=== PATIENT | female | born 1945 | race Caucasian/White ===

== ENCOUNTER 2017-05-15 02:42 | Outpatient (CLI) | payer SELFPAY | END 2017-05-15 23:59 | disposition home or self-care (01) | LOC: HW VAS 02:42 | DX: Z00.00 Encounter for general adult medical examination without abnormal findings (principal) ==

== ENCOUNTER 2017-12-06 09:58 | Outpatient (CLI) | payer MEDICARE, BC | END 2017-12-06 23:59 | disposition home or self-care (01) | LOC: RT 09:58 | PROVIDERS: ATTEND Internal Medicine Cardiovascular Disease | DX: Z51.81 Encounter for therapeutic drug level monitoring (principal); I10 Essential (primary) hypertension; Z79.899 Other long term (current) drug therapy | CPT/HCPCS: 71046; 85018; 94010; 94727; 94729 ==

== ENCOUNTER 2020-06-04 06:11 | Day surgery (SDC) | payer MEDICARE, BC ==
[2020-06-03 15:20] LABS: BASOPHILS # (AUTO) 0.1 X10'3 (0-0.2); BASOPHILS % (AUTO) 0.9 % (0-1); EOSINOPHILS # (AUTO) 0.1 X10'3 (0-0.9); EOSINOPHILS % (AUTO) 1.7 % (0-6); HEMATOCRIT 39.8 % (35.0-45.0); LYMPHOCYTES % (AUTO) 17.5 % (21-51); MEAN CORPUSCULAR HEMOGLOBIN 32.3 PG (27.0-31.0); MEAN CORPUSCULAR HGB CONC 32.6 g/dL (33.0-36.5); MEAN CORPUSCULAR VOLUME 99.1 FL (78-98); MEAN PLATELET VOLUME 8.4 FL (7.4-10.4); MONOCYTES # (AUTO) 0.5 X10'3 (0-0.9); MONOCYTES % (AUTO) 8.5 % (2-12); NEUTROPHILS % (AUTO) 71.4 % (42-75); PLATELET COUNT 245 X10'3 (140-440); RED BLOOD COUNT 4.02 X10'6 (4.20-5.60); RED CELL DISTRIBUTION WIDTH 14.7 % (11.5-14.5); WHITE BLOOD COUNT 5.6 X10'3 (4.5-11.0)
[2020-06-03 15:24] LABS: ALBUMIN 3.7 G/DL (3.4-5.0); ANION GAP 5 (8-16); BLOOD UREA NITROGEN 11 MG/DL (7-18); BUN/CREATININE RATIO 12.6 (6.6-38.0); CALCIUM 8.9 MG/DL (8.5-10.1); CHLORIDE 104 MMOL/L (99-107); CREATININE 0.87 MG/DL (0.40-0.90); GLUCOSE 97 MG/DL (70-104); POTASSIUM 4.2 MMOL/L (3.5-5.1); SODIUM 138 MMOL/L (135-145); TOTAL CARBON DIOXIDE 28.8 MMOL/L (24-32); eGFR 64 ML/MIN
[2020-06-03 15:26] LABS: PARTIAL THROMBOPLASTIN TIME 34 SECONDS (22-32)
[2020-06-04] VITALS (11 sets, daily range): BP systolic 116–147; BP diastolic 53–88
[~2020-06-04] VITALS: Ht 162.6 cm; Wt 56.3 kg
[2020-06-04] MEDS ORDERED: normal saline 1000ml 1,000 ML IV SCH (06:25)
[2020-06-04] MEDS ORDERED: ceFAZolin 2gm in dextrose, iso 50 ML IV ONE (06:25)
[2020-06-04] MEDS ORDERED: ESCI10TA66 PO (06:56)
[2020-06-04] MEDS ORDERED: DONE10TA44 PO (06:56)
[2020-06-04] MEDS ORDERED: MEMA1CAP3 PO (06:56)
[2020-06-04] MEDS ORDERED: DABI150C PO (06:56)
[2020-06-04] MEDS ORDERED: TRAZ-256 PO (06:56)
[2020-06-04] MEDS ORDERED: RISE35TA13 PO (06:56)
[2020-06-04] MEDS ORDERED: ASPI-1053 PO (06:56)
[2020-06-04] MEDS ORDERED: AMIO200T61 PO (06:56)
[2020-06-04] MEDS ORDERED: LISI10TA4 PO (06:56)
[2020-06-04] MEDS ORDERED: LEVO75TA7 PO (06:56)
[2020-06-04] MEDS ORDERED: ROSU5TAB12 PO (06:56)
[2020-06-04] MEDS ORDERED: LOPE-190 (07:01)
[2020-06-04] MEDS ORDERED: METO100T14 PO (07:01)
[2020-06-04] MEDS ORDERED: LIDOcaine 1% W/epiNEPHrine 1:100,000 20ml vial ONE (08:30)
[2020-06-04] MEDS ORDERED: fentaNYL/PF 50MCG/1 ML 2ML syringe ONE (08:30)
[2020-06-04] MEDS ORDERED: midazolam 2 mg/2 ml injection ONE (08:30)
[2020-06-04] MEDS ORDERED: ceFAZolin 1000mg inj ONE (08:30)
--- NOTE | 2020-06-04 10:48 | NUR ---
Discharge instructions, including new script for Keflex and resuming of Pradaxa on 06/06/20, reviewed with pt's daughter Shirley via telephone. Daughter had opportunity to ask questions & expressed understanding of DC instructions.
[2020-06-04] MEDS ORDERED: HYDROcodone/acetaminophen 10/325mg tab PO PRN (10:50)
[2020-06-04] MEDS ORDERED: HYDROcodone/acetaminophen 5mg/325mg tablet PO PRN (10:50)
[2020-06-04] MEDS ORDERED: vancomycin/NS 1 GM ADD-VANTAGE 250 ML X 1 DOSE IV ONE (12:00)
--- NOTE | 2020-06-04 12:12 | NUR ---
Upon entering pt's room, discovered pt standing at bedside, gown and L arm sling off, monitor disconnected. Pt stated "I don't know what all these things are for, I need to get out of here". Pt requires reorientation Q15 minutes, A&O x1. Pt lives alone, pt's daughter stated that she would stay with pt tonight but that pt would return to previous living arrangement post discharge. This RN will contact social human services assistants for evaluation. Addendum: 06/04/20 at 1237 by Daniela Gresham RN Associate Music Professor paged for consult.
--- NOTE | 2020-06-04 12:31 | NUR ---
Tabs alarm placed on pt.
--- NOTE | 2020-06-04 13:51 | NUR ---
Called CM re pt removing sling & moving arm.
== END 2020-06-04 16:00 | disposition home or self-care (01) ==
LOC: SSTAY O 06:11
PROVIDERS: ATTEND Internal Medicine Cardiovascular Disease
DX: I49.5 Sick sinus syndrome (principal); I25.10 Atherosclerotic heart disease of native coronary artery without angina pectoris; E11.9 Type 2 diabetes mellitus without complications; I10 Essential (primary) hypertension; E78.49 Other hyperlipidemia; I48.0 Paroxysmal atrial fibrillation; G47.30 Sleep apnea, unspecified; E66.3 Overweight; Z68.23 Body mass index [BMI] 23.0-23.9, adult; Z85.3 Personal history of malignant neoplasm of breast; Z86.73 Personal history of transient ischemic attack (TIA), and cerebral infarction without residual deficits; Z90.49 Acquired absence of other specified parts of digestive tract; Z90.710 Acquired absence of both cervix and uterus; Z98.890 Other specified postprocedural states; Z79.899 Other long term (current) drug therapy; Z88.5 Allergy status to narcotic agent; Z79.82 Long term (current) use of aspirin; Z82.49 Family history of ischemic heart disease and other diseases of the circulatory system
CPT/HCPCS: 33208; 36415; 71046; 80048; 85025; 85610; 85730; 93005; 99152; 99153; C1785; C1894; C1898; J0690; J2250; J3010; J3370; J7030; A4620; A6449